=== PATIENT | female | born 1990 | race Caucasian/White ===

== ENCOUNTER 2017-03-24 10:15 | Day surgery (SDC) | payer MEDICAID ==
[2017-03-24] VITALS (9 sets, daily range): BP systolic 95–111; BP diastolic 56–62; PULSE 70–102; TEMP 97.6–98.2
[~2017-03-24] VITALS: Ht 165.1 cm; Wt 91.5 kg
[2017-03-24] MEDS ORDERED: LEXAPRO20 MG PO (11:35)
[2017-03-24] MEDS ORDERED: BUSPIRONE HCL7.5 MG PO (11:36)
[2017-03-24] MEDS ORDERED: ZYRTEC 10MG10 MG PO (11:36)
[2017-03-24] MEDS ORDERED: PERCOCET 325 MG1 TA2 PO (12:08)
[2017-03-24] MEDS ORDERED: MOTRIN 800800 MG/TAB PO (12:08)
[2017-03-25 01:00] VITALS: BP 100/57; PULSE 82; TEMP 98.4
[2017-03-25 09:57] VITALS: BP 110/62; PULSE 75; TEMP 98.1
== END 2017-03-25 10:00 | disposition home or self-care (01) ==
LOC: SDCO 10:15 → OB 17:00 → SDCO 03-25 10:00
DX: N80.0 Endometriosis of uterus (principal); N72 Inflammatory disease of cervix uteri; N83.201 Unspecified ovarian cyst, right side; N89.8 Other specified noninflammatory disorders of vagina; F41.9 Anxiety disorder, unspecified; F32.9 Major depressive disorder, single episode, unspecified; Z80.41 Family history of malignant neoplasm of ovary; Z80.49 Family history of malignant neoplasm of other genital organs
CPT/HCPCS: OP; A4315; C1713; J1100; J1170; J1580; J1885; J2405; J2704; J2710; J3010; J7120

== ENCOUNTER 2018-10-21 12:54 | Emergency (ER) | payer OTHER, MEDICAID ==
[~2018-10-21] VITALS: Ht 165.1 cm; Wt 89.5 kg
[~2018-10-21 12:54] MED LIST: BUSPIRONE HCL7.5 MG PO; LEXAPRO20 MG PO; MOTRIN 800800 MG/TAB PO; PERCOCET 325 MG1 TA2 PO; ZYRTEC 10MG10 MG PO
[2018-10-21] MEDS ORDERED: TOPAMAX50 MG PO ×2 (13:07→13:08)
[2018-10-21] MEDS ORDERED: LAMICTAL 100MG100 MG PO (13:08)
[2018-10-21] MEDS ORDERED: VIIBRYD20 MG PO (13:09)
[2018-10-21] MEDS ORDERED: KLONOPIN 1MG1 MG PO (13:10)
[2018-10-21] MEDS ORDERED: MINIPRESS2 MG (13:10)
[2018-10-21] MEDS ORDERED: SEROQUEL 200MG200 MG PO (13:10)
[2018-10-21] MEDS ORDERED: ZOFRAN 4MG T4 MG/TAB PO (13:11)
[2018-10-21] MEDS ORDERED: FIORICET 325 MG1 TA1 PO (13:11)
[2018-10-21] MEDS ORDERED: MULTI VITAMINS1 TAB PO (13:12)
[2018-10-21 13:25] LABS: COLLECTION METHOD CLEAN CATCH
[2018-10-21 13:36] LABS: MUCOUS Present /lpf; PH 7 (5-8); URINE APPEARANCE Hazy; URINE BACTERIA None Seen /hpf; URINE BILIRUBIN Negative (NEGATIVE); URINE BLOOD Negative (NEGATIVE); URINE COLOR Yellow; URINE GLUCOSE Negative (NEGATIVE); URINE KETONE Negative (NEGATIVE); URINE LEUKOCYTE ESTERASE 1+ (NEGATIVE); URINE NITRATE Positive (NEGATIVE); URINE PROTEIN(semi-quant) Negative (NEGATIVE); URINE RBC 0-2 /hpf; URINE UROBILINOGEN Negative (NEGATIVE)
[2018-10-21 13:37] LABS: BASO # 0.1 (0.0-0.2); BASO % 0.8 % (0.0-2.0); EOS # 0.3 (0.0-0.7); EOS % 3.4 % (0-4.0); GRAN # 5.8 (1.4-6.5); GRAN % 64.9 % (42.2-75.2); HEMATOCRIT 39.9 % (37.0-47.0); HEMOGLOBIN 13.4 g/dl (12.5-16.0); LYMPH # 2.3 (1.2-3.4); LYMPH % 25.2 % (20.0-51.0); MEAN CELL VOLUME 87 fl (80.0-100.0); MEAN CORPUSCULAR HEMOGLOBIN 29 pg (27.0-31.0); MEAN CORPUSCULAR HGB CONC 34 g/dl (33.0-37.0); MEAN PLATELET VOLUME 10.9 fl (7.4-10.4); MONO # 0.5 (0.1-0.6); MONO % 5.3 % (1.7-9.3); PLATELET COUNT 202 K/mm3 (130-400); RED BLOOD COUNT 4.61 M/mm3 (4.10-5.30); REDCELL DISTRIBUTION WIDTH-CV 13.5 % (11.5-14.5)
[2018-10-21 13:48] LABS: ALANINE AMINOTRANSFERASE 13 U/L (9-52); ALBUMIN 3.9 gm/dL (3.5-5.0); ALKALINE PHOSPHATASE 61 U/L (50-136); ANION GAP 6 mmol/L (7-16); AST,SGOT 16 U/L (15-37); BILIRUBIN,TOTAL 0.4 mg/dL (0.0-1.0); BLOOD UREA NITROGEN 14 mg/dL (7-17); CALCIUM 9.3 mg/dL (8.4-10.2); CARBON DIOXIDE 26 mmol/L (22-30); CHLORIDE 108 mmol/L (98-107); CREATININE, serum 0.81 mg/dL (0.52-1.25); GLUCOSE 100 mg/dL (74-106); POTASSIUM 3.7 mmol/L (3.4-5.0); SODIUM 140 mmol/L (137-145); TOTAL PROTEIN 7.1 gm/dL (6.4-8.2)
[2018-10-21 13:53] LABS: ALCOHOL(ethanol),MEDICAL < 10 mg/dL
[2018-10-21 13:57] LABS: TRICYCLIC ANTIDEPRESS URINE POSITIVE
[2018-10-21 14:05] LABS: PROLACTIN 11.2 ng/mL (3.0-18.6)
[2018-10-21] MEDS ORDERED: BACTRIM DS 8001 TAB PO (15:41)
[2018-10-21 15:55] VITALS: BP 103/60; PULSE 87; TEMP 98.4
[2018-10-22] VITALS (318 sets, daily range): O2SAT 37–100
== END 2018-10-21 16:00 | disposition home or self-care (01) ==
LOC: COL.ER 12:54
PROVIDERS: Family Medicine
DX: N39.0 Urinary tract infection, site not specified (principal); J32.9 Chronic sinusitis, unspecified; F43.10 Post-traumatic stress disorder, unspecified; F32.9 Major depressive disorder, single episode, unspecified
CPT/HCPCS: J2405; J7030

== ENCOUNTER 2018-10-22 00:49 | Inpatient (IN) | payer OTHER, MEDICAID ==
[2018-10-22] VITALS (72 sets, daily range): BP systolic 96–120; BP diastolic 42–81; PULSE 87–115; TEMP 97.6–99.4; O2SAT 97–100
[~2018-10-22] VITALS: Ht 165.1 cm; Wt 89.9 kg
[~2018-10-22 00:49] MED LIST changes: +BACTRIM DS 8001 TAB PO; +FIORICET 325 MG1 TA1 PO; +KLONOPIN 1MG1 MG PO; +LAMICTAL 100MG100 MG PO; +MINIPRESS2 MG; +MULTI VITAMINS1 TAB PO; +SEROQUEL 200MG200 MG PO; +TOPAMAX50 MG PO; +VIIBRYD20 MG PO; +ZOFRAN 4MG T4 MG/TAB PO
[2018-10-22 02:39] LABS: BASO # 0.1 (0.0-0.2); BASO % 0.6 % (0.0-2.0); EOS # 0.2 (0.0-0.7); EOS % 2.8 % (0-4.0); GRAN # 4.9 (1.4-6.5); GRAN % 59.5 % (42.2-75.2); LYMPH # 2.6 (1.2-3.4); LYMPH % 31.3 % (20.0-51.0); MEAN CELL VOLUME 87 fl (80.0-100.0); MEAN CORPUSCULAR HEMOGLOBIN 30 pg (27.0-31.0); MEAN CORPUSCULAR HGB CONC 34 g/dl (33.0-37.0); MEAN PLATELET VOLUME 11.1 fl (7.4-10.4); MONO # 0.4 (0.1-0.6); MONO % 5.3 % (1.7-9.3); PLATELET COUNT 192 K/mm3 (130-400); RED BLOOD COUNT 4.06 M/mm3 (4.10-5.30); REDCELL DISTRIBUTION WIDTH-CV 13.3 % (11.5-14.5)
[2018-10-22 02:40] LABS: HEMATOCRIT 35.2 % (37.0-47.0)
[2018-10-22 02:49] LABS: ALBUMIN 3.3 gm/dL (3.5-5.0); BILIRUBIN,TOTAL 0.2 mg/dL (0.0-1.0); CALCIUM 8.2 mg/dL (8.4-10.2); CREATININE, serum 0.71 mg/dL (0.52-1.25); MAGNESIUM 1.7 mg/dL (1.6-2.3); POTASSIUM 3.8 mmol/L (3.4-5.0); TOTAL PROTEIN 6.1 gm/dL (6.4-8.2)
[2018-10-22 03:06] LABS: PROLACTIN 19.6 ng/mL (3.0-18.6)
[2018-10-23] VITALS: BP 93/56; PULSE 98; TEMP 98.4
[2018-10-23 04:35] VITALS: BP 129/40; BP 92/55; PULSE 100; TEMP 98.7
[2018-10-23 06:41] LABS: BASO # 0.1 (0.0-0.2); BASO % 0.7 % (0.0-2.0); EOS # 0.2 (0.0-0.7); EOS % 2.5 % (0-4.0); GRAN # 6.6 (1.4-6.5); GRAN % 69.6 % (42.2-75.2); HEMATOCRIT 38.7 % (37.0-47.0); HEMOGLOBIN 13.1 g/dl (12.5-16.0); LYMPH % 21.2 % (20.0-51.0); MEAN CELL VOLUME 86 fl (80.0-100.0); MEAN CORPUSCULAR HEMOGLOBIN 29 pg (27.0-31.0); MEAN CORPUSCULAR HGB CONC 34 g/dl (33.0-37.0); MEAN PLATELET VOLUME 11.4 fl (7.4-10.4); MONO # 0.5 (0.1-0.6); MONO % 5.6 % (1.7-9.3); PLATELET COUNT 235 K/mm3 (130-400); RED BLOOD COUNT 4.51 M/mm3 (4.10-5.30); REDCELL DISTRIBUTION WIDTH-CV 13.3 % (11.5-14.5)
[2018-10-23 06:58] LABS: ALBUMIN 3.7 gm/dL (3.5-5.0); CALCIUM 8.9 mg/dL (8.4-10.2); CREATININE, serum 0.8 mg/dL (0.52-1.25)
[2018-10-23 07:45] VITALS: BP 97/63; PULSE 105; TEMP 97.8
[2018-10-23 08:10] LABS: POTASSIUM 3.8 mmol/L (3.4-5.0)
[2018-10-23 12:38] VITALS: BP 96/58; PULSE 106; TEMP 98.6
[2018-10-23 16:47] VITALS: BP 121/71; PULSE 110
[2018-10-23 20:15] VITALS: BP 114/67; PULSE 93; TEMP 98.7
[2018-10-24 00:37] VITALS: BP 95/62; PULSE 90; TEMP 98.6
[2018-10-24 05:09] VITALS: BP 98/59; PULSE 87; TEMP 97.9
[2018-10-24 07:38] VITALS: BP 107/70; PULSE 100; TEMP 98.4
[2018-10-24 11:31] VITALS: BP 101/57; PULSE 103; TEMP 98.3
[2018-10-24 12:33] VITALS: BP 116/73; BP 144/66; PULSE 109; TEMP 98.8
[2018-10-24 12:47] VITALS: BP 107/79; BP 116/73; BP 144/66; PULSE 109; PULSE 120; TEMP 98.8
[2018-10-24] MEDS ORDERED: DILANTIN 100MG100 MG PO (14:52)
[2018-10-24] MEDS ORDERED: PROAMATINE 5MG T5 MG PO (15:57)
[2018-10-24] MEDS ORDERED: MACROBID 1100 MG/CAP PO (16:20)
== END 2018-10-24 18:18 | disposition home or self-care (01) | DRG 101 ==
LOC: IMCU 00:49 → MEDICAL 01:56 → ICU 01:56 → MEDICAL 12:07
PROVIDERS: Nurse Practitioner Family; Physician Assistant
DX: R56.9 Unspecified convulsions (principal); F43.10 Post-traumatic stress disorder, unspecified; F41.8 Other specified anxiety disorders; F31.9 Bipolar disorder, unspecified; I95.1 Orthostatic hypotension
CPT/HCPCS: 99232-AI; 99239; A9585; J1953; J2060; J7030; Q2009

== ENCOUNTER 2018-12-30 06:48 | Outpatient (CLI) | payer OTHER, MEDICAID ==
[~2018-12-30] VITALS: Ht 165.2 cm; Wt 92.6 kg
[~2018-12-30 06:48] MED LIST changes: +DILANTIN 100MG100 MG PO; +MACROBID 1100 MG/CAP PO; +PROAMATINE 5MG T5 MG PO
[2018-12-30 07:45] VITALS: BP 111/72; PULSE 65; TEMP 98.2
[2018-12-30] MEDS ORDERED: SEROQUEL 200MG200 MG PO (07:49)
[2018-12-30] MEDS ORDERED: D3-5050000 IU PO (07:50)
[2018-12-30] MEDS ORDERED: MAG-OX 400400 MG/TAB PO (07:51)
[2018-12-30] MEDS ORDERED: VIIBRYD20 MG PO (07:52)
[2018-12-30] MEDS ORDERED: ATIVAN 1MG T1 MG/TAB PO (07:53)
[2018-12-30] MEDS ORDERED: ZYRTEC 10MG10 MG PO (07:53)
[2018-12-30] MEDS ORDERED: LAMICTAL150 MG PO (07:53)
--- NOTE | 2018-12-30 08:30 | NUR ---
Pt to procedure.
[2018-12-30] MEDS ORDERED: TOPROL XL 25MG25 MG PO (10:39)
--- NOTE | 2018-12-30 10:56 | NUR ---
Discharge instructions given to pt.Pt verbalizes understanding.INT removed,catheter tip intact.
[2018-12-30 10:59] VITALS: BP 109/82; PULSE 80
--- NOTE | 2018-12-30 10:59 | NUR ---
Pt escorted out by this nurse.
== END 2018-12-30 11:02 | disposition home or self-care (01) ==
LOC: COL.CAR 06:48
DX: I49.8 Other specified cardiac arrhythmias (principal); Z88.1 Allergy status to other antibiotic agents; Z88.8 Allergy status to other drugs, medicaments and biological substances

== ENCOUNTER 2019-03-09 09:14 | Emergency (ER) | payer OTHER, MEDICAID ==
[~2019-03-09] VITALS: Ht 165.1 cm; Wt 90.0 kg
[~2019-03-09 09:14] MED LIST changes: +ATIVAN 1MG T1 MG/TAB PO; +D3-5050000 IU PO; +LAMICTAL150 MG PO; +MAG-OX 400400 MG/TAB PO; +TOPROL XL 25MG25 MG PO
[2019-03-09 09:18] VITALS: TEMP 98.2
[2019-03-09 09:53] LABS: COLLECTION METHOD CLEAN CATCH
[2019-03-09 10:04] LABS: MUCOUS Present /lpf; PH 5 (5-8); URINE APPEARANCE Clear; URINE BACTERIA Rare /hpf; URINE BILIRUBIN Negative (NEGATIVE); URINE BLOOD Negative (NEGATIVE); URINE COLOR Yellow; URINE GLUCOSE Negative (NEGATIVE); URINE KETONE Negative (NEGATIVE); URINE LEUKOCYTE ESTERASE Negative (NEGATIVE); URINE NITRATE Negative (NEGATIVE); URINE PROTEIN(semi-quant) Negative (NEGATIVE); URINE RBC 0-2 /hpf; URINE UROBILINOGEN Negative (NEGATIVE)
[2019-03-09 10:34] LABS: BASO # 0.1 (0.0-0.2); BASO % 0.8 % (0.0-2.0); EOS # 0.2 (0.0-0.7); EOS % 2.3 % (0-4.0); GRAN # 5.6 (1.4-6.5); GRAN % 64.2 % (42.2-75.2); HEMATOCRIT 38.7 % (37.0-47.0); LYMPH # 2.3 (1.2-3.4); LYMPH % 26.9 % (20.0-51.0); MEAN CELL VOLUME 85 fl (80.0-100.0); MEAN CORPUSCULAR HEMOGLOBIN 29 pg (27.0-31.0); MEAN CORPUSCULAR HGB CONC 34 g/dl (33.0-37.0); MONO # 0.5 (0.1-0.6); MONO % 5.3 % (1.7-9.3); PLATELET COUNT 211 K/mm3 (130-400); RED BLOOD COUNT 4.53 M/mm3 (4.10-5.30); REDCELL DISTRIBUTION WIDTH-CV 13.7 % (11.5-14.5)
[2019-03-09 10:48] LABS: ALANINE AMINOTRANSFERASE 20 U/L (9-52); ALBUMIN 3.9 gm/dL (3.5-5.0); ALKALINE PHOSPHATASE 59 U/L (50-136); ANION GAP 9 mmol/L (7-16); AST,SGOT 18 U/L (15-37); BILIRUBIN,TOTAL 0.5 mg/dL (0.0-1.0); BLOOD UREA NITROGEN 15 mg/dL (7-17); C-REACTIVE PROTEIN < 0.5 mg/dL (0.0-0.9); CALCIUM 9.2 mg/dL (8.4-10.2); CARBON DIOXIDE 26 mmol/L (22-30); CHLORIDE 105 mmol/L (98-107); CREATININE, serum 0.66 (0.52-1.25); GLUCOSE 90 mg/dL (74-106); SODIUM 140 mmol/L (137-145); TOTAL PROTEIN 7.1 gm/dL (6.4-8.2)
[2019-03-09] MEDS ORDERED: LEVAQUIN 750MG750 M1 PO (11:03)
[2019-03-09] MEDS ORDERED: PYRIDIUM200 M1 PO (11:03)
[2019-03-09] MEDS ORDERED: XANAX 1MG1 MG PO (11:28)
[2019-03-09 11:31] VITALS: BP 108/75; PULSE 90
== END 2019-03-09 11:35 | disposition home or self-care (01) ==
LOC: COL.ER 09:14
PROVIDERS: Physician Assistant
DX: N39.0 Urinary tract infection, site not specified (principal); Z90.710 Acquired absence of both cervix and uterus
CPT/HCPCS: J1885; J2405; J7030

== ENCOUNTER → 2019-12-14 | Outpatient (CLI) | payer MEDICAID ==
[~2019-12-14] VITALS: Ht 163.8 cm; Wt 95.0 kg
[~2019-12-14] MED LIST changes: +FLONASEALLERGY NS; +LEVAQUIN 750MG750 M1 PO; +MULTIVITAMIN FO1 CAP PO; +PYRIDIUM200 M1 PO; +XANAX 1MG1 MG PO
[2019-12-14 12:25] VITALS: BP 108/64; PULSE 66
== END ==
LOC: LIGHT 12:00
DX: Z68.35 Body mass index [BMI] 35.0-35.9, adult (principal); I49.8 Other specified cardiac arrhythmias; F32.9 Major depressive disorder, single episode, unspecified
CPT/HCPCS: G0463